=== PATIENT | female | born 1960 | race Caucasian/White ===

== ENCOUNTER 2022-10-01 20:04 | Observation (INO) | payer MEDICARE ==
[2022-10-01] MEDS ORDERED: cefTRIAXone (ROCEPHIN) 2 GM VIAL ONE (20:21)
[2022-10-01] MEDS ORDERED: LORazepam 2 MG/ML SYR.(CARPUJECT) ONE (20:21)
[2022-10-01] MEDS ORDERED: Pantoprazole 40 MG VIAL ONE (20:38)
[2022-10-01 20:53] LABS: #Basophils 0.1 thou/uL (0.0-0.2); #Lymphocytes 3.5 thou/uL (1.20-3.40); #Neutrophils 6.4 thou/uL (1.40-6.50); %Basophils 0.5 % (0.0-1.0); %Eosinophils 0.3 % (0.0-10.0); %Monocytes 9.4 % (0.0-10.0); %Neutrophils 57.7 % (42.0-75.0); Hemoglobin 12.2 g/dL (12.0-16.0); Mean Corpuscular HGB CONC 35.5 g/dL (32.0-36.0); Mean Corpuscular Hemoglobin 31.1 pg (27.0-31.0); Mean Corpuscular Volume 87.6 fl (78.0-98.0); Mean Platelet Volume 7.2 fL (7.4-10.4); Platelet Count 229 10x3/uL (130-400); Red Blood Cell (RBC) Count 3.91 mill/uL (4.20-5.40)
[2022-10-01 21:00] LABS: INR-International Normal Ratio 0.9; PTT 23.5 sec (22.9-36.1); Prothrombin Time 12.8 sec (12.0-14.7)
[2022-10-01 21:06] LABS: Anion Gap 20 mmol/L (10-20); BUN (Urea Nitrogen) 12 mg/dL (9.8-20.1); Calc. Creatinine Clearance 0 mL/min (70-130); Calcium 9.8 mg/dL (7.8-10.44); Carbon Dioxide 22 mmol/L (23-31); Chloride 89 mmol/L (98-107); Estimated GFR 78; Glucose 125 mg/dL (80-115); Lipase 25 U/L (8-78); Potassium 4.1 mmol/L (3.5-5.1); Sodium 127 mmol/L (136-145)
[2022-10-01 21:07] LABS: ALT (SGPT) 18 U/L (8-55); AST (SGOT) 32 U/L (5-34); Alkaline Phosphatase 82 U/L (40-110); Bilirubin, Direct 0.3 mg/dL (0.1-0.3); Bilirubin, Total 0.8 mg/dL (0.2-1.2); Protein, Total 8.9 g/dL (5.8-8.1)
[2022-10-01 21:47] LABS: Bacteria/HPF None Seen HPF (None Seen); Bilirubin Negative (Negative); Blood, Urine Negative (Negative); Clarity Clear (Clear); Glucose, Urine (Dipstick) Normal (Negative); Ketone, Urine 10 mg/dL (Negative); Leukocyte Negative Leu/uL (Negative); Nitrite Negative (Negative); Protein, Urine (Dipstick) 70 mg/dL (Neg-Trace); RBC/HPF 0-3 HPF (0-3); Specific Gravity, Urine 1.018 (1.002-1.036); Squamous Epithelial 0-3 HPF (0-3); Urobilinogen Normal mg/dL (Less than 2); WBC/HPF 0-3 HPF (0-3)
[2022-10-01] MEDS ORDERED: Acetaminophen 325 MG TAB PO PRN (23:17)
[2022-10-01] MEDS ORDERED: Ondansetron PF 4 MG/2 ML Vial IVP PRN (23:17)
[2022-10-01] MEDS ORDERED: Lorazepam 1 MG TAB PO PRN (23:22)
[2022-10-01] MEDS ORDERED: Lorazepam 2 MG/ML VIAL IM PRN (23:22)
[2022-10-01] MEDS ORDERED: Thiamine HCl 200 MG/2 ML VIAL SLOW IVP SCH (23:30)
[2022-10-01] MEDS ORDERED: Electrolyte Replacement Protocol 1 EACH FS SCH (23:30)
[2022-10-01] MEDS ORDERED: Folic Acid 1 MG TAB PO SCH (23:45)
[2022-10-01] MEDS ORDERED: Multivit, Therapeutic 1 TAB PO SCH (23:45)
[2022-10-01 23:52] VITALS: BMI 21.9
[2022-10-02 00:12] LABS: Amphetamine Not Detected (NotDetected); Barbiturates Screen Not Detected (NotDetected); Benzodiazepine Screen Not Detected (NotDetected); Cocaine Metabolite Screen Not Detected (NotDetected); Methadone Not Detected (NotDetected); Methamphetamine Not Detected (NotDetected); Opiate Screen Not Detected (NotDetected); Oxycodone Screen Not Detected (NotDetected); Phencyclidine (PCP) Not Detected (NotDetected); THC/Cannabinoid Screen Detected (NotDetected); Tricyclic Screen Not Detected (NotDetected)
[2022-10-02 05:39] LABS: #Lymphocytes 2.2 thou/uL (1.20-3.40); #Monocytes 0.7 thou/uL (0.11-0.59); #Neutrophils 3.1 thou/uL (1.40-6.50); %Basophils 0.7 % (0.0-1.0); %Eosinophils 0.6 % (0.0-10.0); %Lymphocytes 35.9 % (21.0-51.0); %Monocytes 11.6 % (0.0-10.0); %Neutrophils 51.2 % (42.0-75.0); Hemoglobin 11.2 g/dL (12.0-16.0); Mean Corpuscular Hemoglobin 31.8 pg (27.0-31.0); Mean Corpuscular Volume 88.2 fl (78.0-98.0); Mean Platelet Volume 7.2 fL (7.4-10.4); Platelet Count 182 10x3/uL (130-400); Red Blood Cell (RBC) Count 3.51 mill/uL (4.20-5.40)
[2022-10-02 05:55] LABS: Anion Gap 15 mmol/L (10-20); BUN (Urea Nitrogen) 10 mg/dL (9.8-20.1); Calc. Creatinine Clearance 77 mL/min (70-130); Carbon Dioxide 22 mmol/L (23-31); Chloride 96 mmol/L (98-107); Estimated GFR 97; Glucose 96 mg/dL (80-115); Magnesium 1.8 mg/dL (1.6-2.6); Phosphorus 3.1 mg/dL (2.3-4.7); Potassium 3.9 mmol/L (3.5-5.1); Sodium 129 mmol/L (136-145)
[2022-10-02] MEDS ORDERED: Magnesium 2 GM/50 ML(in water) 2 GM in Premix Bag 1 BAG IVPB SCH (08:00)
[2022-10-02] MEDS ORDERED: Lisinopril 20 MG TAB PO SCH (09:00)
[2022-10-02] MEDS ORDERED: Pantoprazole 40 MG VIAL IVP SCH (09:00)
[2022-10-02] MEDS ORDERED: Folic Acid 1 MG TAB PO SCH (09:00)
[2022-10-02] MEDS ORDERED: Multivit, Therapeutic 1 TAB PO SCH (09:00)
[2022-10-02] MEDS ORDERED: PROPOFOL 200 MG/20 ML VIAL ONE (12:23)
[2022-10-02] MEDS ORDERED: Lidocaine 1% PF 5 ML VIAL ONE (12:23)
[2022-10-02] MEDS ORDERED: Labetalol HCl 100 MG/20 ML VIAL SLOW IVP PRN (12:56)
[2022-10-02] MEDS ORDERED: Ondansetron HCl/PF 4 MG/2 ML Vial IVP PRN (12:57)
[2022-10-02] MEDS ORDERED: Promethazine HCl 25 MG/ML VIAL IM PRN (12:57)
[2022-10-02] MEDS ORDERED: Labetalol HCl 100 MG/20 ML VIAL ONE (13:16)
[2022-10-02 17:11] VITALS: BP 167/79; TEMP 97.8
[2022-10-02] MEDS ORDERED: Lorazepam 1 MG TAB PO PRN (23:22)
[2022-10-03] MEDS ORDERED: Lorazepam 1 MG TAB PO PRN (23:22)
[2022-10-04] MEDS ORDERED: Thiamine 100 MG TAB PO SCH (21:00)
[2022-10-04] MEDS ORDERED: Lorazepam 0.5 MG TAB PO PRN (23:22)
== END 2022-10-02 17:32 | disposition home or self-care (01) ==
LOC: ERS 20:04 → 2SW 22:28 → OBSVTOIN 10-02 12:58 → INTOOBSV 10-02 12:58
PROVIDERS: ADMIT Internal Medicine; ATTEND Internal Medicine
PROC: 0W3P8ZZ Control Bleeding in Gastrointestinal Tract, Via Natural or Artificial Opening Endoscopic (ICD-10-PCS; principal; 2022-10-02)
DX: K22.6 Gastro-esophageal laceration-hemorrhage syndrome (principal); D62 Acute posthemorrhagic anemia; K44.9 Diaphragmatic hernia without obstruction or gangrene; E87.1 Hypo-osmolality and hyponatremia; I10 Essential (primary) hypertension; F10.20 Alcohol dependence, uncomplicated; K76.0 Fatty (change of) liver, not elsewhere classified; F12.10 Cannabis abuse, uncomplicated; J44.9 Chronic obstructive pulmonary disease, unspecified; I25.10 Atherosclerotic heart disease of native coronary artery without angina pectoris; E78.5 Hyperlipidemia, unspecified; K21.9 Gastro-esophageal reflux disease without esophagitis; G89.29 Other chronic pain; M54.9 Dorsalgia, unspecified; F14.11 Cocaine abuse, in remission; Z85.41 Personal history of malignant neoplasm of cervix uteri; Z87.891 Personal history of nicotine dependence; Z79.82 Long term (current) use of aspirin; Z79.899 Other long term (current) drug therapy; Z88.1 Allergy status to other antibiotic agents
CPT/HCPCS: 43255; 71045; 76705; 80048 ×2; 80076; 80306; 83605; 83690; 83735; 83930; 83935; 84100; 84300; 84484; 85025 ×2; 85610; 85730; 86850; 86900; 86901; 87040; 87086; 93005; 96361; 96365; 96375 ×2; 96376; 99285; G0378 ×3; J2060; 36415; 81003; 81015; C9113; J0696; J2405; J2704; J3411

== ENCOUNTER 2023-10-11 07:57 | Outpatient (CLI) | payer MEDICARE | END 2023-10-11 07:58 | disposition home or self-care (01) | LOC: BICMAMMO 07:57 | PROVIDERS: ATTEND Nurse Practitioner Family | DX: N64.89 Other specified disorders of breast (principal) | CPT/HCPCS: 76642; 77065; G0279 ==